=== PATIENT | female | born 1980 | race Caucasian/White ===

== ENCOUNTER 2016-12-25 17:17 | Inpatient (IN) | payer BC ==
--- NOTE | ~2016-12-25 | CN ---
Consultation Report [facility] [address] [place]. [address] NAME: MAGDA MIX : 78 STATUS : ADM David PAT#: [id number] AGE: 36 ADM/REG DATE : 12/25/16 MR#: [id number] REPORT SERV DATE: 12/26/16 DICTATED BY: HUNTER HERNANDEZ JR. DATE: 12/26/16 REPORT STATUS : Draft TRANSCRIBED BY: MODL DATE: 12/26/16 CONSULTATION DATE OF CONSULTATION: 12/26/2016 DIRECTOR FINANCIAL SERVICES: Hunter Hernandez M.D. CHIEF COMPLAINT: Left staghorn stone. HISTORY OF PRESENT ILLNESS: Mrs. Mix is a 36-year-old female, who for past several weeks has been having increasing nausea and vomiting, and presented to the emergency room last night complaining of mid back and left flank pain, along with nausea and vomiting. She had a CT scan, which shows a very large 3 cm renal pelvic stone with a smaller stone in the lower pole of that same kidney. The CT scan did not show any evidence of perinephric stranding, but suggest pyelonephritis, however, she does have some atrophy to that kidney. There was no evidence of hydronephrosis or obstruction of the kidney. Her creatinine level was 1.95, with a BUN of 53, which leads to be towards a pre renal azotemia. She also has been having a lot of difficulties managing her blood sugars as she has diabetic. She has been having blood sugars in the 400 to 500 and has been changed around on several different diabetic medications. This morning, when I saw her in the room she was feeling much better. She had no nausea, no vomiting, and was feeling better after having IV fluids. PAST MEDICAL HISTORY: Significant for diabetes, hypertension, gastroesophageal reflux, and nephrolithiasis. PAST SURGICAL HISTORY: Tibial fracture and nasal surgery. ALLERGIES: PENICILLIN AND CLARITHROMYCIN. SOCIAL HISTORY: She does not smoke cigarettes. She occasionally drinks alcohol. She has three children. 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 REVIEW OF SYSTEMS: A 10 system review was performed. This was essentially negative other than that stated above. FAMILY HISTORY: Diabetes, cancer, and stroke. HOME MEDICATIONS: Reviewed in the chart. Please see the chart for details. PHYSICAL EXAMINATION: GENERAL: She is a well-nourished, well-developed female, in no acute distress. VITAL SIGNS: She is afebrile. Vital signs are stable. HEENT: Normocephalic and atraumatic. Consultation Report [facility] [address] [place]. [address] NAME: MAGDA MIX : 78 STATUS : ADM David PAT#: [id number] AGE: 36 ADM/REG DATE : 12/25/16 MR#: [id number] REPORT SERV DATE: 12/26/16 DICTATED BY: HUNTER HERNANDEZ JR. DATE: 12/26/16 REPORT STATUS : Draft TRANSCRIBED BY: LIN DATE: 12/26/16 NECK: Symmetric. CHEST: Clear to auscultation bilaterally. HEART: Regular rate and rhythm. ABDOMEN: Soft, nontender, nondistended, without palpable hernias. She has no CVA tenderness today. LABORATORY DATA: BUN and creatinine today have come down, BUN is 47, creatinine 1.79. Electrolytes within normal limits. White blood cell count of 6.1, with a hemoglobin of 12.5. Urinalysis in the emergency room showed 36 red cells, 28 white cells per high-power field otherwise negative. IMAGING: CT scan as per the above. ASSESSMENT: Large renal pelvic stone on the left side with some atrophy. RECOMMENDATIONS: Since she seems to be feeling better today, I do not think there is any urgent surgical need rehydrating her and seeing how her creatinine response with that, I think would be the first order of business, along with managing her blood sugars. We will plan percutaneous ultrasonic lithotripsy in the near future to manage her stone burden on the left. We could put in a percutaneous nephrostomy tube urgently if her pain returns, however, at this time, she seems to be doing well, and we can likely perform this procedure as an outpatient within the next two weeks. I discussed the procedure in detail with the patient and her family. Their questions were answered to their satisfaction. We discussed risks and possible complications of the procedure and they expressed understanding in the plan. VINNY/LIN Hunter Hernandez Jr., M.D. / [id number] CC: Sybil Messina M.D.
--- NOTE | ~2016-12-25 | HP ---
History And Physical [address] [address] NAME: MAGDA DEGAR : 78 STATUS : ADM David PAT#: [id number] AGE: 36 ADM/REG DATE : 12/25/16 MR#: [id number] REPORT SERV DATE: 12/26/16 DICTATED BY: CHRISTOPHER BAPTISTE DATE: 12/26/16 REPORT STATUS : Draft TRANSCRIBED BY: MODL DATE: 12/26/16 DATE OF ADMISSION: 12/25/2016 CHIEF COMPLAINT: A 36-year-old female presenting with flank pain. HISTORY OF PRESENTING ILLNESS: The patient's history was obtained through an interview with the patient and her mother. About 10 days prior to admission, the patient began to feel "extremely sick" with nausea, vomiting, and increasing flank pain. She describes left flank pain across the middle of her back and tense, exacerbated by moving, 7 to 8 out of 10 severity. She has had a decreased appetite, orthostatic symptoms with near syncope and lightheadedness. She has noticed darkening of her urine and occasional urinary frequency, but no dysuria. No fevers or chills. No diarrhea. No shortness of breath. No chest pain. Her diabetes had been very poorly controlled up until about three weeks ago. Earlier this year, she had daily blood sugars that would often reach 400s and 500s, but she was started on a new medicine Trulicity, and now her maximum blood sugar in the last three weeks has been around 260 with many blood sugars in the 100s. REVIEW OF SYSTEMS: Otherwise a 14-point review of systems was obtained and was negative. PAST MEDICAL HISTORY: 1. Diabetes. 2. Hypertension. 3. Gastroesophageal reflux disorder. 4. Nephrolithiasis. 5. No cardiac disease. 6. No lung disease. PAST SURGICAL HISTORY: 1. Tibial fracture with surgery when the patient was a teenager. 2. Nasal surgery. ALLERGIES: PENICILLIN AND CLARITHROMYCIN. SOCIAL HISTORY: The patient does smoke cigarettes. Drinks occasional alcohol. Lives in [place], [place]. Is single. Has three children ages 7, 9, and 12. 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 History And Physical [address] [address] NAME: MAGDA EDGAR : 78 STATUS : ADM David PAT#: [id number] AGE: 36 ADM/REG DATE : 12/25/16 MR#: [id number] REPORT SERV DATE: 12/26/16 DICTATED BY: CHRISTOPHER BAPTISTE DATE: 12/26/16 REPORT STATUS : Draft TRANSCRIBED BY: LIN DATE: 12/26/16 FAMILY HISTORY: Diabetes, cancer, and stroke. CURRENT MEDICATIONS: Include Invokana 300 mg p.o. daily, chlorthalidone 25 mg p.o. daily, Celexa 40 mg p.o. daily, doxycycline 100 mg p.o. b.i.d., Trulicity 1.5 mg subcutaneous every week, Tresiba 60 units subcutaneous at bedtime, sliding-scale insulin, lisinopril 20 mg p.o. daily, melatonin at bedtime, Zofran p.r.n., tramadol 50 mg as needed. PHYSICAL EXAMINATION: VITAL SIGNS: Temperature 98.6, pulse 95, blood pressure as low as 93/47, respiratory rate 16, and O2 saturation 97% on room air. GENERAL: A pleasant, cooperative female, but she describes distress from nausea and flank pain. HEENT: Pupils equal, round, and reactive to light. No conjunctival pallor. No scleral icterus. Nares are patent. Oropharynx is clear of obstruction. Very dry mucous membranes. NECK: Trachea midline. No thyromegaly. LYMPH: No cervical lymphadenopathy. No supraclavicular lymphadenopathy. RESPIRATORY: Clear to auscultation at bases. No wheezes, rales, or rhonchi. Normal respiratory effort. CARDIOVASCULAR: Regular rate and rhythm. No murmurs, rubs, or gallops. No extremity edema is appreciated. ABDOMEN: Soft, completely nontender despite the patient's complaint of left flank pain, she has no tenderness on examination. Nondistended. No hepatosplenomegaly. DERMATOLOGICAL: Warm and dry extremities. No pallor, no cyanosis. PSYCHIATRIC: Normal affect. Good mood. Alert and oriented x3. LABORATORY DATA: White blood cell count 8.6, hemoglobin 14, hematocrit 42, platelets 323. Sodium 135, potassium 4.2, chloride 103, bicarb 25, BUN 53, creatinine 1.95, glucose 177. Urinalysis shows large leukocyte esterase, 28 white blood cells, 36 red blood cells. Liver enzymes within normal limits. Lipase 733. STUDIES: CT scan of the abdomen shows a 1.6 x 3 cm x 1.7 cm left renal pelvis calculus. ASSESSMENT AND PLAN: 1. Large left kidney stone in the kidney, pelvis, 1.6 x 3.0 x 1.7 cm. Consult urologist, Dr. Hernandez. 2. Acute kidney injury. Place on IV fluids. Hold chlorthalidone. 3. Urinary tract infection. Check urine culture. Place on IV Rocephin. 4. Diabetes. Check hemoglobin A1c. Continue home medications plus sliding scale insulin. JEREMIAH/LIN Christopher Baptiste M.D. History And Physical [address] [address] NAME: MAGDA EDGAR : 78 STATUS : ADM David PAT#: [id number] AGE: 36 ADM/REG DATE : 12/25/16 MR#: [id number] REPORT SERV DATE: 12/26/16 DICTATED BY: CHRISTOPHER BAPTISTE DATE: 12/26/16 REPORT STATUS : Draft TRANSCRIBED BY: LIN DATE: 12/26/16 / [id number] CC: Sybil Messina M.D.
--- NOTE | ~2016-12-25 | DS ---
Discharge Summary [facility] [address] [place]. [address] NAME: MAGDA EDGAR : 78 STATUS : DIS IN PAT#: [id number] AGE: 36 ADM/REG DATE : 12/25/16 MR#: [id number] REPORT SERV DATE: 12/29/16 DICTATED BY: JR. STEVENS WILLIAM JOHN DATE: 12/28/16 REPORT STATUS : Draft TRANSCRIBED BY: MODKelly DATE: 12/28/16 ADMISSION DATE: 12/25/2016 DISCHARGE DATE: 12/28/2016 DISCHARGE DIAGNOSES: 1. Left staghorn calculus measuring 1.6 x 3 x 1.7 cm. 2. Acute kidney injury. 3. Urinary tract infection. 4. Diabetes mellitus type 2. 5. Obesity with a body mass index of 43.4. OPERATIONS/PROCEDURES AND TREATMENTS: CT with kidney stone protocol done 12/25/2016 which showed large nonobstructing 13 mm calculus in the lower pole of left kidney and large nonobstructing left renal pelvic calculus measuring 1.6 x 3 x 1.7 cm with moderate diffuse atrophy in the left kidney, otherwise, no acute changes. Urine culture done 12/25/2016 which was a contaminated sample with gram-positive cocci and diphtheroid like organisms. CONSULTING PHYSICIAN: Includes Dr. Hernandez of Urology. DISCHARGE MEDICATIONS: Include: 1. Celexa 40 mg orally daily. 2. Tresiba 60 units subcu at bedtime. 3. Lisinopril 20 mg orally daily. 4. Sliding scale Humalog insulin. 5. Zofran 4 mg every eight hours as needed. 6. Tramadol 50 mg every four hours as needed. 7. Melatonin 5 mg at bedtime as needed. 8. Cefdinir 300 mg orally twice a day for seven days. HOSPITAL COURSE: The patient was a 36-year-old female, presented to the emergency room on 12/25/2016 with complaint of flank pain. About 10 days prior to admission, the patient began to feel "extremely sick" with nausea, vomiting, and increasing flank pain. By presentation, the pain was rated 7 to 8/10 with decreased appetite, orthostatics symptoms, near syncope, and lightheadedness. She also noticed a darkening of her urine with occasional urinary frequency. The patient also reports that she had previously had very poorly controlled blood sugars and has recently seen an pharmacy technician per diem, and her blood sugars are much better control recently. Initial exam showed a temperature of 98.6, heart rate 95, respiratory rate of 16, and blood pressure 93/47. The patient's abdomen was soft, completely nontender. Exam otherwise overall unremarkable. Laboratory showed a white count of 8.6, BUN of 53, creatinine 1.9, urinalysis showed large leukocyte esterase, 28 white blood cells per high-power field, 36 red blood cells per high- power field. Lipase was mildly elevated at 733. CT of the abdomen as detailed above. Discharge Summary [facility] [id number] [facility] [place]. [address] NAME: MAGDA EDGAR : 78 STATUS : DIS IN PAT#: [id number] AGE: 36 ADM/REG DATE : 12/25/16 MR#: [id number] REPORT SERV DATE: 12/29/16 DICTATED BY: JR. STEVENS WILLIAM JOHN DATE: 12/28/16 REPORT STATUS : Draft TRANSCRIBED BY: LIN DATE: 12/28/16 The patient was admitted to the hospital for left kidney stone with acute kidney injury. She was seen in consultation by Dr. Hernandez of Urology who recommended outpatient ureteral stents with shock wave lithotripsy after renal function is optimized. The patient was placed on IV fluids and Rocephin for a urinary tract infection. Symptomatically, her urinary tract infection improved. Her urine culture was a contaminated sample, therefore, not helpful. She will be discharged home on cefdinir to complete seven days. Her renal function improved to a BUN of 27, creatinine 1.3 at discharge. I discussed the case with Dr. Hernandez. She will follow up with him on 01/04/2017 for a right ureteral stent and on Sunday for a shock wave lithotripsy. For discharge exam and laboratory, please see daily progress note. DISCHARGE DIET: ADA diet. ACTIVITY: As tolerated. This discharge took 35 minutes for patient encounter, coordination of care, and documentation. FOLLOWUP: 1. Dr. Hernandez on the for ureteral stent and Sunday the for shock wave lithotripsy. 2. Follow up with her primary care provider, Dr. Sandrine Jimenez, in two to four weeks. This discharge took 35 minutes for patient encounter, coordination of care, and documentation. ALLYSON/LIN Hunter Stevens Jr, MD / [id number] CC: Hunter Stevens Jr, MD Suzanne Storey, M.D.
[2016-12-25 18:20] LABS: BASOPHILS 0.6 %; BASOPHILS ABSOLUTE 0.05 10/3/uL (0.0-0.16); EOSINOPHILS 1.9 %; EOSINOPHILS ABSOLUTE 0.16 10/3/uL (0.0-0.53); ER CBC TAT 0 Hrs 05 Mins; HEMOGLOBIN 14.6 g/dL (12.0-16.0); IMMATURE GRANULOCYTES 0.1 %; IMMATURE GRANULOCYTES ABSOLUTE 0.01 10/3/uL (0.0-0.11); LYMPHOCYTES 46.2 %; LYMPHOCYTES ABSOLUTE 3.98 10/3/uL (0.67-4.30); MANUAL DIFF NO %; MEAN CORPUS HGB CONC 34.8 g/dL (32.0-36.0); MEAN CORPUSCULAR HEMOGLOB 30.5 pg (26.0-34.0); MEAN CORPUSCULAR VOLUME 87.7 fL (80-100); MEAN PLATELET VOLUME 10.6 fL (9.2-13.0); MONOCYTES 4.5 %; MONOCYTES ABSOLUTE 0.39 10/3/uL (0.21-1.20); NEUTROPHILS 46.7 %; NEUTROPHILS ABSOLUTE 4.02 10/3/uL (2.02-8.40); PLATELET COUNT 323 10/3/uL (150-400); RED CELL COUNT 4.79 10/6/uL (4.0-5.6); WHITE BLOOD CELLS 8.6 10/3/uL (4.5-10.5)
[2016-12-25 18:33] LABS: A/G RATIO 0.8 (0.7-1.9); ALBUMIN 3.5 G/DL (3.5-5.0); CALCIUM, SERUM 9.6 MG/DL (8.5-10.4); CHLORIDE, SERUM 103 MMOL/L (96-112); CO2 (CARBON DIOXIDE) 25 MMOL/L (24-34); GLOBULIN 4.6 G/DL (2.5-4.1); GLUCOSE, SERUM 177 MG/DL (60-99); POTASSIUM, SERUM 4.2 MMOL/L (3.5-5.3); SGOT(AST) 22 U/L (5-40); SGPT(ALT) 49 U/L (5-65); SODIUM, SERUM 135 MMOL/L (135-148); TOTAL BILIRUBIN 0.3 MG/DL (0-1.2); TOTAL PROTEIN 8.1 G/DL (6.0-8.5)
[2016-12-25 18:34] LABS: ALKALINE PHOSPHATASE 88 U/L (45-117); BUN (BLOOD UREA NITROGEN) 53 MG/DL (6-23); CREATININE 1.95 MG/DL (0.55-1.02); GFR AFRICAN AMERICAN 37 ML/MIN (>=60); GFR NON AFRICAN AMERICAN 32 ML/MIN (>=60)
[2016-12-25 18:34] LABS: ASCORBIC ACID (UR NOT ORDER) NEG (NEG); BILIRUBIN, URINE NEGATIVE (NEG); ER URINALYSIS TAT 0 Hrs 28 Mins; KETONE, URINE NEGATIVE (NEG); LEUKOCYTE ESTERASE(NOT OR LARGE (NEG); NITRITE (URINE) NEG (NEG); WBC (NOT ORDERED) (RFLEX) 28 (0-5)
[2016-12-25] MEDS ORDERED: TRESIBA FL100 UNIT/1 SC (22:55)
[2016-12-25] MEDS ORDERED: HUMALOG SC (22:56)
[2016-12-25] MEDS ORDERED: INVOKANA300 MG PO (22:56)
[2016-12-25] MEDS ORDERED: PRIN20 PO (22:57)
[2016-12-25] MEDS ORDERED: CELEXA40 MG PO (22:57)
[2016-12-25] MEDS ORDERED: HYGROTON 25 MG25 MG PO (22:57)
[2016-12-25] MEDS ORDERED: TRULICITY1.5 MG/0.5 SC (22:58)
[2016-12-25] MEDS ORDERED: MONODOX100 MG PO (22:59)
[2016-12-25] MEDS ORDERED: ULTRAM50 PO (22:59)
[2016-12-25] MEDS ORDERED: ZOFRAN4 PO (22:59)
[2016-12-25] MEDS ORDERED: MELATONIN5 M1 PO (23:01)
[2016-12-26 06:43] LABS: BASOPHILS 0.5 %; BASOPHILS ABSOLUTE 0.03 10/3/uL (0.0-0.16); EOSINOPHILS 3.6 %; EOSINOPHILS ABSOLUTE 0.22 10/3/uL (0.0-0.53); HEMATOCRIT 37.6 % (36.0-48.0); HEMOGLOBIN 12.5 g/dL (12.0-16.0); IMMATURE GRANULOCYTES 0.2 %; IMMATURE GRANULOCYTES ABSOLUTE 0.01 10/3/uL (0.0-0.11); LYMPHOCYTES 63.3 %; LYMPHOCYTES ABSOLUTE 3.87 10/3/uL (0.67-4.30); MANUAL DIFF NO %; MEAN CORPUS HGB CONC 33.2 g/dL (32.0-36.0); MEAN CORPUSCULAR HEMOGLOB 29.7 pg (26.0-34.0); MEAN CORPUSCULAR VOLUME 89.3 fL (80-100); MEAN PLATELET VOLUME 10.2 fL (9.2-13.0); MONOCYTES 6.5 %; NEUTROPHILS 25.9 %; NEUTROPHILS ABSOLUTE 1.58 10/3/uL (2.02-8.40); PLATELET COUNT 248 10/3/uL (150-400); RBC DISTRIBUTION WIDTH 12.9 % (12.0-16.0); RED CELL COUNT 4.21 10/6/uL (4.0-5.6); WHITE BLOOD CELLS 6.1 10/3/uL (4.5-10.5)
[2016-12-26 06:46] LABS: CALCIUM IONIZED 4.59 MG/DL (3.80-4.80)
[2016-12-26 06:51] LABS: INTERNATIONAL NORMAL RATI 1.2 UNITS (-); PROTIME (NOT ORD) 14.6 SEC (12.0-14.5)
[2016-12-26 07:06] LABS: CALCIUM, SERUM 8.7 MG/DL (8.5-10.4); CHLORIDE, SERUM 109 MMOL/L (96-112); CO2 (CARBON DIOXIDE) 22 MMOL/L (24-34); CREATININE 1.79 MG/DL (0.55-1.02); GFR AFRICAN AMERICAN 41 ML/MIN (>=60); GFR NON AFRICAN AMERICAN 36 ML/MIN (>=60); POTASSIUM, SERUM 3.7 MMOL/L (3.5-5.3); SGOT(AST) 21 U/L (5-40); SGPT(ALT) 36 U/L (5-65); SODIUM, SERUM 141 MMOL/L (135-148); TOTAL BILIRUBIN 0.2 MG/DL (0-1.2)
[2016-12-26 07:07] LABS: A/G RATIO 0.7 (0.7-1.9); ALBUMIN 2.5 G/DL (3.5-5.0); ALKALINE PHOSPHATASE 64 U/L (45-117); BUN (BLOOD UREA NITROGEN) 47 MG/DL (6-23); GLOBULIN 3.6 G/DL (2.5-4.1); GLUCOSE, SERUM 140 MG/DL (60-99); TOTAL PROTEIN 6.1 G/DL (6.0-8.5)
[2016-12-26 07:16] LABS: GLYCOHEMOGLOBIN (HbA1c) 10.7 % (4.7-6.1)
[2016-12-27 04:47] LABS: CALCIUM, SERUM 8.8 MG/DL (8.5-10.4); CHLORIDE, SERUM 112 MMOL/L (96-112); CO2 (CARBON DIOXIDE) 23 MMOL/L (24-34); CREATININE 1.72 MG/DL (0.55-1.02); GFR AFRICAN AMERICAN 43 ML/MIN (>=60); GFR NON AFRICAN AMERICAN 37 ML/MIN (>=60); GLUCOSE, SERUM 144 MG/DL (60-99); POTASSIUM, SERUM 4.3 MMOL/L (3.5-5.3); SODIUM, SERUM 144 MMOL/L (135-148)
[2016-12-27 04:48] LABS: BUN (BLOOD UREA NITROGEN) 39 MG/DL (6-23)
[2016-12-28 05:33] LABS: CALCIUM, SERUM 8.7 MG/DL (8.5-10.4); CHLORIDE, SERUM 111 MMOL/L (96-112); CO2 (CARBON DIOXIDE) 24 MMOL/L (24-34); CREATININE 1.27 MG/DL (0.55-1.02); GFR AFRICAN AMERICAN 62 ML/MIN (>=60); GFR NON AFRICAN AMERICAN 54 ML/MIN (>=60); GLUCOSE, SERUM 167 MG/DL (60-99); POTASSIUM, SERUM 4.3 MMOL/L (3.5-5.3); SODIUM, SERUM 142 MMOL/L (135-148)
[2016-12-28 05:35] LABS: BUN (BLOOD UREA NITROGEN) 27 MG/DL (6-23)
[2016-12-28] MEDS ORDERED: OMNICEF300 PO (10:03)
[2017-04-15] MEDS ORDERED: TRESIBA FL100 UNIT/1 SC (23:43)
[2017-04-15] MEDS ORDERED: HUMALOGPEN SC (23:43)
[2017-04-15] MEDS ORDERED: FORTAMET500 MG PO (23:44)
[2017-04-15] MEDS ORDERED: CELEXA40 MG PO (23:44)
[2017-04-15] MEDS ORDERED: PRIN20 PO (23:44)
[2017-04-15] MEDS ORDERED: QSYMIA 7.5 MG-1 EACH PO (23:44)
[2017-04-15] MEDS ORDERED: POTASSIUM RX PO (23:45)
[2017-04-15] MEDS ORDERED: MELATONIN5 M1 PO (23:47)
[2017-04-15] MEDS ORDERED: BACTROCR TOP (23:48)
[2017-04-15] MEDS ORDERED: UROCIT-K 15 PO (23:50)
[2017-04-20] MEDS ORDERED: LIPITOR20 PO (16:44)
[2017-04-20] MEDS ORDERED: NOVOLOG SQ (16:45)
[2017-04-20] MEDS ORDERED: MULTIPLE VIT PO (16:46)
[2017-04-20] MEDS ORDERED: LEVEMIR (16:47)
[2017-04-20] MEDS ORDERED: LEVEMIR SQ (16:48)
[2017-04-20] MEDS ORDERED: NOVOLOG SC (16:51)
[2017-04-20] MEDS ORDERED: DORYX100 MG PO (16:53)
== END 2016-12-28 10:48 | disposition home or self-care (01) | DRG 683 ==
LOC: ER 17:17 → 5NO 23:26
PROVIDERS: Hospitalist; Internal Medicine
DX: N17.9 Acute kidney failure, unspecified (principal); N39.0 Urinary tract infection, site not specified; Z68.41 Body mass index [BMI] 40.0-44.9, adult; N20.0 Calculus of kidney; E11.9 Type 2 diabetes mellitus without complications; E66.9 Obesity, unspecified
CPT/HCPCS: 74176; 80048; 80053; 81001; 82330; 82962; 83036; 83690; 83735; 84100; 84443; 84703; 85025; 85610; 85730; 87086; 96374; 96375; 99285; A9270-GY; C9113; J2405

== ENCOUNTER 2017-01-04 10:56 | Inpatient (IN) | payer BC ==
--- NOTE | ~2017-01-04 | OP ---
Record Of Operation [facility] [address] [place]. [address] NAME: MAGDA MIX : 78 STATUS : ADM IN PAT#: [id number] AGE: 36 ADM/REG DATE : 01/04/17 MR#: [id number] REPORT SERV DATE: 01/05/17 DICTATED BY: HUNTER HERNANDEZ JR. DATE: 01/05/17 REPORT STATUS : Draft TRANSCRIBED BY: MODL DATE: 01/05/17 DATE OF PROCEDURE: 01/05/2017 SURGEON: Hunter Hernandez M.D. PREOPERATIVE DIAGNOSIS: Left staghorn stone. POSTOPERATIVE DIAGNOSIS: Left staghorn stone. PROCEDURE PERFORMED: Left percutaneous nephrolithotripsy. COMPLICATIONS: None. CONSULTATIONS: None. ANESTHESIA: General with an endotracheal tube. SPECIMENS: Stone fragments. DRAINS: A 20-[place] Algaaciq tip Luciano catheter as percutaneous nephrostomy tube, 16-[place] Citizen Luciano catheter, and 6 x 26 cm double-J stent. ESTIMATED BLOOD LOSS: 5 mL. INDICATION: Ms. Mix is a 36-year-old female, who is admitted with flank pain, nausea, and vomiting, and was found to have a large staghorn calculus in the left kidney. Her flank pain improved with hydration and pain medication. She was discharged home and brought back yesterday for percutaneous placement of a NU stent and comes today for percutaneous nephrolithotripsy. PROCEDURE IN DETAIL: After the patient was identified and proper informed consent was obtained, she was taken to the operating room. General anesthesia was performed without complication using an endotracheal tube. She was then prepped and draped in normal sterile fashion in the prone position. Using C-arm fluoroscopy, I placed a guidewire down the NU stent into the bladder and removed the NU stent from the patient's flank. I then enlarged that incision site and placed a double lumen catheter over the super-stiff guidewire, placing a second super-stiff guidewire down to the bladder and then removing the double lumen catheter. Once I had two safety wires in place, I then placed a 28-[place] Citizen Nephroscopy sheath with balloon over the guidewire into the collecting system abutting the stone under fluoroscopic imaging. I inflated the dilating balloon to 10 atmospheres of pressure and then guided the sheath over the balloon into the renal pelvis abutting the stone. Nephroscopy was then performed, the stone was visualized, and I then began fragmenting the stone using the ultrasonic Lithotripter machine. The stone was completely fragmented and removed using this device. I inspected the UPJ. I did not note any stones within the UPJ and on x-ray, there were no further stones visible. I then removed the nephroscope placing a 6 x 26 cm double-J stent with a nice curl in both the bladder and the renal pelvis. I Record Of Operation [address] [address] NAME: MAGDA MIX : 78 STATUS : ADM IN PAT#: [id number] AGE: 36 ADM/REG DATE : 01/04/17 MR#: [id number] REPORT SERV DATE: 01/05/17 DICTATED BY: HUNTER HERNANDEZ JR. DATE: 01/05/17 REPORT STATUS : Draft TRANSCRIBED BY: LIN DATE: 01/05/17 then inserted a 20-[place] Algaaciq tip catheter over the guidewire into the renal pelvis placing 2 mL of sterile water in the balloon. An antegrade nephrostogram was then performed, which revealed no extravasation. I then removed the nephroscopy sheath and the second safety wire and sutured the nephrostomy tube in place using a 2-0 silk suture. The patient was awakened in the operating room, transferred to the postanesthesia care unit in stable condition. Her nephrostomy tube will be clamped tonight with plans on removing it in the morning. I will have her discharged home and then follow up with me in two weeks for double-J stent removal. VINNY/LIN Hunter Hernandez Jr., M.D. / [id number] CC: Sybil Haile Jr., M.D.
[~2017-01-04 10:56] MED LIST: CELEXA40 MG PO; HUMALOG SC; HYGROTON 25 MG25 MG PO; INVOKANA300 MG PO; MELATONIN5 M1 PO; MONODOX100 MG PO; OMNICEF300 PO; PRIN20 PO; TRESIBA FL100 UNIT/1 SC; TRULICITY1.5 MG/0.5 SC; ULTRAM50 PO; ZOFRAN4 PO
[2017-01-04 11:31] LABS: HEMATOCRIT 39.9 % (36.0-48.0); HEMOGLOBIN 13.2 g/dL (12.0-16.0); PLATELET COUNT 274 10/3/uL (150-400)
[2017-01-04 11:37] LABS: PARTIAL THROMBO TIME 26.3 SEC (22.5-37.2); PROTIME (NOT ORD) 13.1 SEC (12.0-14.5)
[2017-01-04 12:20] LABS: GLUCOSE, SERUM 144 MG/DL (60-99)
[2017-01-04 13:19] LABS: ALBUMIN 2.9 G/DL (3.5-5.0); BUN (BLOOD UREA NITROGEN) 24 MG/DL (6-23); CHLORIDE, SERUM 108 MMOL/L (96-112); CO2 (CARBON DIOXIDE) 26 MMOL/L (24-34); CREATININE 1.28 MG/DL (0.55-1.02); GFR AFRICAN AMERICAN 62 ML/MIN (>=60); GFR NON AFRICAN AMERICAN 53 ML/MIN (>=60); POTASSIUM, SERUM 4.2 MMOL/L (3.5-5.3); SGOT(AST) 17 U/L (5-40); SGPT(ALT) 34 U/L (5-65); SODIUM, SERUM 141 MMOL/L (135-148); TOTAL BILIRUBIN 0.3 MG/DL (0-1.2)
[2017-01-04 13:22] LABS: A/G RATIO 0.6 (0.7-1.9); ALKALINE PHOSPHATASE 83 U/L (45-117); GLOBULIN 4.7 G/DL (2.5-4.1); TOTAL PROTEIN 7.6 G/DL (6.0-8.5)
[2017-01-04 15:18] LABS: ASCORBIC ACID (UR NOT ORDER) NEG (NEG); BILIRUBIN, URINE NEGATIVE (NEG); KETONE, URINE NEGATIVE (NEG); LEUKOCYTE ESTERASE(NOT OR SMALL (NEG); WBC (NOT ORDERED) (RFLEX) 13 (0-5)
[2017-01-06 04:32] LABS: BASOPHILS 0.1 %; BASOPHILS ABSOLUTE 0.01 10/3/uL (0.0-0.16); EOSINOPHILS 0.1 %; EOSINOPHILS ABSOLUTE 0.01 10/3/uL (0.0-0.53); HEMOGLOBIN 11.6 g/dL (12.0-16.0); IMMATURE GRANULOCYTES 0.2 %; IMMATURE GRANULOCYTES ABSOLUTE 0.02 10/3/uL (0.0-0.11); LYMPHOCYTES 11.8 %; LYMPHOCYTES ABSOLUTE 0.99 10/3/uL (0.67-4.30); MEAN CORPUS HGB CONC 32.5 g/dL (32.0-36.0); MEAN CORPUSCULAR HEMOGLOB 29.7 pg (26.0-34.0); MEAN CORPUSCULAR VOLUME 91.3 fL (80-100); MEAN PLATELET VOLUME 9.8 fL (9.2-13.0); MONOCYTES 4.2 %; MONOCYTES ABSOLUTE 0.35 10/3/uL (0.21-1.20); NEUTROPHILS 83.6 %; NEUTROPHILS ABSOLUTE 7.04 10/3/uL (2.02-8.40); PLATELET COUNT 290 10/3/uL (150-400); RBC DISTRIBUTION WIDTH 12.9 % (12.0-16.0); RED CELL COUNT 3.91 10/6/uL (4.0-5.6); WHITE BLOOD CELLS 8.4 10/3/uL (4.5-10.5)
[2017-01-06 04:41] LABS: HEMATOCRIT 35.7 % (36.0-48.0); MANUAL DIFF NO %
[2017-01-06 04:44] LABS: CALCIUM, SERUM 8.4 MG/DL (8.5-10.4); CHLORIDE, SERUM 108 MMOL/L (96-112); CO2 (CARBON DIOXIDE) 23 MMOL/L (24-34); CREATININE 1.42 MG/DL (0.55-1.02); GFR AFRICAN AMERICAN 55 ML/MIN (>=60); GFR NON AFRICAN AMERICAN 47 ML/MIN (>=60); POTASSIUM, SERUM 4.8 MMOL/L (3.5-5.3); SODIUM, SERUM 137 MMOL/L (135-148)
[2017-01-06 04:45] LABS: BUN (BLOOD UREA NITROGEN) 18 MG/DL (6-23); GLUCOSE, SERUM 278 MG/DL (60-99)
[2017-01-06] MEDS ORDERED: PCET PO (11:19)
[2017-01-11 17:45] LABS: STONE COMPOSITION TWO DNR (())
[2017-04-15] MEDS ORDERED: HUMALOGPEN SC (23:43)
[2017-04-15] MEDS ORDERED: TRESIBA FL100 UNIT/1 SC (23:43)
[2017-04-15] MEDS ORDERED: QSYMIA 7.5 MG-1 EACH PO (23:44)
[2017-04-15] MEDS ORDERED: FORTAMET500 MG PO (23:44)
[2017-04-15] MEDS ORDERED: PRIN20 PO (23:44)
[2017-04-15] MEDS ORDERED: CELEXA40 MG PO (23:44)
[2017-04-15] MEDS ORDERED: POTASSIUM RX PO (23:45)
[2017-04-15] MEDS ORDERED: MELATONIN5 M1 PO (23:47)
[2017-04-15] MEDS ORDERED: BACTROCR TOP (23:48)
[2017-04-15] MEDS ORDERED: UROCIT-K 15 PO (23:50)
[2017-04-20] MEDS ORDERED: LIPITOR20 PO (16:44)
[2017-04-20] MEDS ORDERED: NOVOLOG SQ (16:45)
[2017-04-20] MEDS ORDERED: MULTIPLE VIT PO (16:46)
[2017-04-20] MEDS ORDERED: LEVEMIR (16:47)
[2017-04-20] MEDS ORDERED: LEVEMIR SQ (16:48)
[2017-04-20] MEDS ORDERED: NOVOLOG SC (16:51)
[2017-04-20] MEDS ORDERED: DORYX100 MG PO (16:53)
== END 2017-01-06 16:53 | disposition home or self-care (01) | DRG 660 ==
LOC: CSSUOP 10:56 → RADHOLD 11:05 → SSU1 14:53 → SDC/OF 01-05 07:31 → PACU 01-05 10:33 → 4SO 01-05 12:26
PROVIDERS: Allergy & Immunology; Urology
DX: N20.0 Calculus of kidney (principal); Z68.41 Body mass index [BMI] 40.0-44.9, adult; I10 Essential (primary) hypertension; K21.9 Gastro-esophageal reflux disease without esophagitis; E11.9 Type 2 diabetes mellitus without complications; Z79.4 Long term (current) use of insulin; Z87.891 Personal history of nicotine dependence; Z88.8 Allergy status to other drugs, medicaments and biological substances; E66.01 Morbid (severe) obesity due to excess calories
CPT/HCPCS: 36415; 50433; 76000; 76001; 80048; 80053; 81001; 82365; 82962; 84703; 85014; 85018; 85025; 85049; 85610; 85730; 86850; 86900; 86901; 87086; 93005; A9270-GY; C1726; C1729; C1769; C1887; C1894; C2617; J0330; J1170; J1956; J2250; J2270; J2370; J2405; J2710; J3010; Q9967